=== PATIENT | female | born 2005 | race Two or more races ===

== ENCOUNTER 2024-05-01 10:50 | Emergency (ER) | payer SELFPAY ==
[2024-05-01 11:40] LABS: #Basophils 0.05 10x3/uL (0.0-0.2); %Basophils 0.4 % (0.0-1.0); %Eosinophils 1.1 % (0.0-10.0); %Lymphocytes 17.7 % (28.0-48.0); %Monocytes 7.5 % (0.0-4.0); %Neutrophils 72.9 % (31.0-61.0); Hematocrit 38.9 % (36.0-47.0); Hemoglobin 13.1 g/dL (12.0-16.0); Mean Corpuscular HGB CONC 33.7 g/dL (32.0-36.0); Mean Corpuscular Hemoglobin 31.5 pg (25.0-35.0); Mean Corpuscular Volume 93.5 fL (78.0-98.0); Platelet Count 324 10x3/uL (130-400); RBC Distribution Width 11.7 % (11.5-14.5); Red Blood Cell (RBC) Count 4.16 mill/uL (4.00-5.20)
[2024-05-01 11:56] LABS: ALT (SGPT) 15 U/L (8-55); AST (SGOT) 14 U/L (5-30); Alkaline Phosphatase 80 U/L (40-100); Anion Gap 13 mmol/L (10-20); BUN (Urea Nitrogen) 6 mg/dL (8.4-21.0); Bilirubin, Total 0.7 mg/dL (0.2-1.2); CRP,High Sensitivity (Inhouse) 4.61 mg/dL (< or = 0.5); Calc. Creatinine Clearance 0 mL/min (70-130); Calcium 9.3 mg/dL (7.8-10.44); Carbon Dioxide 23 mmol/L (22-29); Chloride 105 mmol/L (98-107); Estimated GFR 130; Globulin 3.6 g/dL (2.4-3.5); Glucose 94 mg/dL (70-105); Protein, Total 7.6 g/dL (6.0-8.3); Sodium 137 mmol/L (136-145)
[2024-05-01] MEDS ORDERED: Morphine 4 MG/ML VIAL ONE (13:10)
[2024-05-01] MEDS ORDERED: Lidocaine 1% PF 5 ML VIAL ONE (13:19)
[2024-05-01 13:37] LABS: BHCG - Serum Negative (NEGATIVE); Pregs Control Background? CLEAR/WHITE (CLR/WHITE); Pregs Control Bar Appear? YES (CONTROL BAR)
== END 2024-05-01 14:34 | disposition home or self-care (01) ==
LOC: ERS 10:50
DX: L05.01 Pilonidal cyst with abscess (principal)
CPT/HCPCS: 36415; 80053; 83605; 84703; 85025; 86141; 96372; 99282; J2272